=== PATIENT | male | born 1955 | race Caucasian/White ===

== ENCOUNTER → 2017-04-10 | Outpatient (CLI) | payer MEDICAID, OTHER ==
[~2017-04-10] MED LIST: AMIO200T PO; AMIO200T42 PO; AMLO2.5T PO; ATEN25TA PO; BACL-19 PO; BUDE10.2 INH; BUDE10.22 INH; CARV-39 PO; CARV12.52 PO; CEFD300C37 PO; CEFU500T50 PO; CLON-364 PO; DIPH25CA61 PO; DOXY100C2 PO; DOXY100T PO; ENOX80SY5 SQ; FAMO-79 PO; FOLI-17 PO; FURO-93 PO; FURO20TA3 PO; Folic Acid PO; GUAI200T3 PO; HYDR-3237 PO; HYDR-3241 PO; HYDR12.53 PO; HYDR25TA6 PO; IPRA3AMP NPPB; IRBE150T25 PO; IRBE300T16 PO; LEVO500T47 PO; LISI-170 PO; LORA-446 PO; LORA1TAB PO; MAGN400T26 PO; METR500T PO; NICO-485 TD; NICO-486 TD; OXYC5TAB3 PO; PRED-402 PO; PRED20TA PO; RIVA20TA PO; SILD50TA PO; SULF1TAB24 PO; THIA100T10 PO; THIA100T6 PO; TRAM-47 PO; WARF7.5T6 PO-COUM
== END | disposition home or self-care (01) ==
LOC: CFH 11:19
PROVIDERS: ATTEND Internal Medicine Cardiovascular Disease
DX: I48.0 Paroxysmal atrial fibrillation (principal); Z95.0 Presence of cardiac pacemaker
CPT/HCPCS: 71046

== ENCOUNTER → 2018-04-14 | Outpatient (CLI) | payer OTHER ==
[~2018-04-14] MED LIST changes: +ALBU18HF INH; -AMLO2.5T PO; +AMLO2.5T5 PO; +CARV12.543 PO; -CLON-364 PO; +CLON0.5T11 PO; +HYDR12.517 PO; -HYDR12.53 PO; -IPRA3AMP NPPB; +IPRA3AMP30 NPPB; +IRBE150T49 PO; +OMNIPAQUE 350 MG/ML, 150 ML BOTTLE ONE; +OXYB5TAB7 PO; +TAMS0.4C2 PO; -THIA100T6 PO; +THIA100T67 PO; +WARF-36 PO; +WARF7.5T46 PO-COUM; -WARF7.5T6 PO-COUM; +ZOLP-413 PO
== END | disposition home or self-care (01) ==
LOC: CFH 10:40
PROVIDERS: ATTEND Physician Assistant
DX: N26.1 Atrophy of kidney (terminal) (principal); M51.37 Other intervertebral disc degeneration, lumbosacral region
CPT/HCPCS: 74178; Q9967

== ENCOUNTER → 2018-05-10 | Outpatient (CLI) | payer OTHER ==
[~2018-05-10] MED LIST changes: +ASCO100019 PO; +ATOR20TA37 PO; +CYAN1TAB29 PO; +OMEG1CAP23 PO; -OMNIPAQUE 350 MG/ML, 150 ML BOTTLE ONE; +VARE1TAB20 PO; +WARF10TA43 PO
[2018-05-10 11:57] LABS: BASOPHILS # (AUTO) 0.03 x10^3/uL (0-0.1); BASOPHILS % (AUTO) 0 % (0-1); EOSINOPHILS # (AUTO) 0.53 x10^3/uL (0-0.4); EOSINOPHILS % (AUTO) 6 % (1-7); LYMPHOCYTES # (AUTO) 1.99 x10^3/uL (1-3.4); LYMPHOCYTES % (AUTO) 21 % (22-44); MD NO; MEAN CORPUSCULAR HEMOGLOBIN 28.9 pg (27.5-34.5); MEAN CORPUSCULAR HGB CONC 33.8 g/dL (33.2-36.2); MEAN CORPUSCULAR VOLUME 85.6 fL (81-97); MEAN PLATELET VOLUME 8.3 fL (7.4-10.4); MONOCYTES # (AUTO) 0.65 x10^3/uL (0.2-0.8); MONOCYTES % (AUTO) 7 % (2-9); NEUTROPHILS # (AUTO) 6.25 x10^3/uL (1.8-6.8); NEUTROPHILS % (AUTO) 66 % (42-75); PLATELET COUNT 290 x10^3/uL (130-400); RED CELL DISTRIBUTION WIDTH 14.9 % (9.4-14.8)
[2018-05-10 11:57] LABS: MICROSCOPIC AUTO
[2018-05-10 12:08] LABS: ALBUMIN 3.5 g/dL (3.4-5.0); ANION GAP 8 mmol/L (5-15); CALCIUM 8.8 mg/dL (8.5-10.1); CHLORIDE 108 mmol/L (98-107)
[2018-05-10 12:11] LABS: ALANINE AMINOTRANSFERASE 27 U/L (12-78); ALKALINE PHOSPHATASE 102 U/L (45-117); BILIRUBIN,TOTAL 0.5 mg/dL (0.2-1.0); CREATININE 1.16 mg/dL (0.7-1.3); TOTAL PROTEIN 6.9 g/dL (6.4-8.2)
== END | disposition home or self-care (01) ==
LOC: STAR 10:37
PROVIDERS: ATTEND Urology
DX: Z01.818 Encounter for other preprocedural examination (principal); N32.9 Bladder disorder, unspecified
CPT/HCPCS: 36415; 80053; 81001; 85025; 87086; 87106; 93005

== ENCOUNTER 2018-05-17 11:38 | Day surgery (SDC) | payer OTHER ==
[~2018-05-17] VITALS: Ht 167.6 cm; Wt 101.4 kg
[~2018-05-17 11:38] MED LIST changes: +ALBUTEROL/IPRATROPIUM 2.5MG/0.5MG, 3 ML NPPB PRN; +DIPHENHYDRAMINE 50 MG/ML, 1ML IVPush PRN; +FENTANYL PF 100 MCG/2ML IV PRN; +HALOPERIDOL 5 MG/ML IV PRN; +HYDROmorphone 2 MG/ML, 1ML IVPush PRN; +LABETALOL 5MG/ML, 20ML IV PRN; +MEPERIDINE/PF 25MG/0.5ML IVPush PRN; +METOPROLOL 1 MG/ML, 5ML IV PRN; +OXYcodone 5 MG/5 ML ORAL.SOL UDC PO PRN; +PROCHLORPERAZINE 5 MG/ML, 2ML IV PRN; +PROMETHAZINE 25 MG/ML, 1ML IV PRN; +hydrALAzine 20 MG/ML, 1ML IV PRN
[2018-05-17 12:20] VITALS: BP 131/79
[2018-05-17] MEDS ORDERED: GABAPENTIN 300 MG CAPSULE PO ONE (12:30)
[2018-05-17] MEDS ORDERED: ACETAMINOPHEN 500 MG TABLET PO ONE (12:30)
[2018-05-17] MEDS ORDERED: LACTATED RINGERS 1,000 ML IV SCH (12:45)
[2018-05-17] MEDS ORDERED: FENTANYL PF 100 MCG/2ML ONE (13:11)
[2018-05-17] MEDS ORDERED: NEOSTIGMINE 1 MG/ML, 10ML ONE (16:21)
[2018-05-17] MEDS ORDERED: GLYCOPYRROLATE 0.2MG/1ML, 5ML ONE (16:21)
[2018-05-17] MEDS ORDERED: ALBUTEROL SULFATE 200 PUFFS/8.5 GR INH ONE (16:21)
[2018-05-17] MEDS ORDERED: CEFAZOLIN 1,000 MG ONE (16:21)
[2018-05-17] MEDS ORDERED: KETOROLAC 30 MG/1 ML ONE (16:21)
[2018-05-17] MEDS ORDERED: SUCCINYLCHOLINE 20 MG/ML, 10ML ONE (16:21)
[2018-05-17] MEDS ORDERED: ROCURONIUM 10MG/ML,5ML ONE (16:21)
[2018-05-17] MEDS ORDERED: DEXAMETHASONE 4 MG/ML, 1ML ONE (16:21)
[2018-05-17] MEDS ORDERED: PROPOFOL 10 MG/ML, 20ML ONE (16:21)
[2018-05-17] MEDS ORDERED: ONDANSETRON 2MG/ML, 2ML ONE (16:21)
== END 2018-05-17 17:45 | disposition home or self-care (01) ==
LOC: OUT 11:38
PROVIDERS: ATTEND Urology
DX: N30.21 Other chronic cystitis with hematuria (principal); I25.2 Old myocardial infarction; I48.91 Unspecified atrial fibrillation; J44.9 Chronic obstructive pulmonary disease, unspecified; I10 Essential (primary) hypertension; Z95.810 Presence of automatic (implantable) cardiac defibrillator; Z86.718 Personal history of other venous thrombosis and embolism
CPT/HCPCS: 52235; 74420; 88305; C1758; J0330; J0690; J1100; J1885; J2405; J2704; J2710; J3010; J3490; J7120

== ENCOUNTER 2019-01-19 21:06 | Inpatient (IN) | payer OTHER ==
[~2019-01-19] VITALS: Ht 167.6 cm; Wt 83.4 kg
[~2019-01-19 21:06] MED LIST changes: -ALBUTEROL/IPRATROPIUM 2.5MG/0.5MG, 3 ML NPPB PRN; -DIPHENHYDRAMINE 50 MG/ML, 1ML IVPush PRN; -FENTANYL PF 100 MCG/2ML IV PRN; -GUAI200T3 PO; +GUAI200T37 PO; -HALOPERIDOL 5 MG/ML IV PRN; -HYDROmorphone 2 MG/ML, 1ML IVPush PRN; -LABETALOL 5MG/ML, 20ML IV PRN; -MEPERIDINE/PF 25MG/0.5ML IVPush PRN; -METOPROLOL 1 MG/ML, 5ML IV PRN; +OXYB5TAB10 PO; -OXYB5TAB7 PO; -OXYcodone 5 MG/5 ML ORAL.SOL UDC PO PRN; -PROCHLORPERAZINE 5 MG/ML, 2ML IV PRN; -PROMETHAZINE 25 MG/ML, 1ML IV PRN; -hydrALAzine 20 MG/ML, 1ML IV PRN
[2019-01-19] MEDS ORDERED: MORPHINE SULFATE 4 MG/ML, 1ML IVPush PRN (21:30)
[2019-01-19] MEDS ORDERED: ALBUTEROL/IPRATROPIUM 2.5MG/0.5MG, 3 ML NPPB ONE (21:30)
[2019-01-19] MEDS ORDERED: methylPREDNISolone SOD SUCC 125 MG/2 ML IV ONE (21:30)
[2019-01-19] MEDS ORDERED: SODIUM CHLORIDE 0.9% 1,000ML IVBOLUS ONE (21:30)
[2019-01-19] MEDS ORDERED: SODIUM CHLORIDE FLUSH 10ML SYR IVF ONE (21:30)
[2019-01-19] MEDS ORDERED: DILTIAZEM 5 MG/ML, 5ML IV ONE (21:30)
[2019-01-19] MEDS ORDERED: DILTIAZEM 5 MG/ML, 5ML ONE (21:39)
--- NOTE | 2019-01-19 21:40 | NUR ---
RT PGD X4 WITH NO ANSWER. LEFT MESSAGE
--- NOTE | 2019-01-19 21:56 | NUR ---
CONTACTED RT. RT NOW AWARE
[2019-01-19 22:04] LABS: RAPID INFLUENZA A Negative (Negative); RAPID INFLUENZA B Negative (Negative)
--- NOTE | 2019-01-19 22:14 | NUR ---
rt at bedside
[2019-01-19 22:26] LABS: BASOPHILS # (AUTO) 0.01 x10^3/uL (0-0.1); BASOPHILS % (AUTO) 0 % (0-1); EOSINOPHILS # (AUTO) 0.02 x10^3/uL (0-0.4); EOSINOPHILS % (AUTO) 0 % (1-7); LYMPHOCYTES # (AUTO) 0.62 x10^3/uL (1-3.4); LYMPHOCYTES % (AUTO) 5 % (22-44); MD NO; MEAN CORPUSCULAR HEMOGLOBIN 29.2 pg (27.5-34.5); MEAN CORPUSCULAR HGB CONC 33.1 g/dL (33.2-36.2); MEAN CORPUSCULAR VOLUME 88.5 fL (81-97); MEAN PLATELET VOLUME 9.5 fL (7.4-10.4); MONOCYTES # (AUTO) 0.49 x10^3/uL (0.2-0.8); MONOCYTES % (AUTO) 4 % (2-9); NEUTROPHILS % (AUTO) 90 % (42-75); PLATELET COUNT 223 x10^3/uL (130-400); RED BLOOD COUNT 5.34 x10^6/uL (4.38-5.82); RED CELL DISTRIBUTION WIDTH 15.6 % (9.4-14.8)
[2019-01-19] MEDS ORDERED: CEFTRIAXONE PMX 1GM/50ML 50 ML ONE (22:37)
[2019-01-19] MEDS ORDERED: methylPREDNISolone SOD SUCC 125 MG/2 ML ONE (22:37)
[2019-01-19 22:39] LABS: ALANINE AMINOTRANSFERASE 32 U/L (12-78); ALBUMIN 3.5 g/dL (3.4-5.0); ANION GAP 6 mmol/L (5-15); CALCIUM 8.7 mg/dL (8.5-10.1); CHLORIDE 106 mmol/L (98-107)
[2019-01-19 22:40] LABS: INTERNATIONAL NORMALIZED RATIO 1.77 (0.93-1.1); PROTHROMBIN TIME 18.2 Seconds (9.6-11.5)
[2019-01-19 22:42] LABS: ALKALINE PHOSPHATASE 75 U/L (45-117); BILIRUBIN,TOTAL 0.8 mg/dL (0.2-1.0); CREATININE 1.29 mg/dL (0.7-1.3); TOTAL PROTEIN 7.2 g/dL (6.4-8.2); TROPONIN I < 0.015 ng/mL (0.000-0.045)
[2019-01-19] MEDS ORDERED: DILTIAZEM 125 MG in SODIUM CHLORIDE 0.9% 100 ML IV SCH (22:42)
--- NOTE | 2019-01-19 22:50 | NUR ---
PT WORK OF BREATHING IMPROVED. SPEAKING IN FULL SENTENCES. NO ACUTE DISTRESS. ATTACHED TO ALL MONITORS
--- NOTE | 2019-01-19 22:55 | NUR ---
pt ambulatory to the bathroom with a steady gait
[2019-01-19 22:58] LABS: T4 (THYROXINE) 9.8 mcg/dL (4.5-12.1)
[2019-01-19] MEDS ORDERED: AZITHROMYCIN 500 MG in SODIUM CHLORIDE 0.9% 250 ML IVPB ONE (23:00)
[2019-01-19] MEDS ORDERED: CEFTRIAXONE PMX 1GM/50ML 50 ML IVPB ONE (23:00)
[2019-01-19] MEDS ORDERED: SODIUM CHLORIDE 0.9% 1,000 ML IV SCH (23:15)
--- NOTE | 2019-01-19 23:22 | NUR ---
report to ena contreras
[2019-01-19] MEDS ORDERED: ONDANSETRON ODT 4 MG PO PRN (23:30)
[2019-01-19] MEDS ORDERED: FUROSEMIDE 40 MG/4 ML IV ONE (23:30)
[2019-01-19] MEDS ORDERED: BISACODYL 10 MG SUPP PR PRN (23:30)
[2019-01-19] MEDS ORDERED: ONDANSETRON 2MG/ML, 2ML IVPush PRN (23:30)
[2019-01-19] MEDS ORDERED: DILTIAZEM 125 MG in SODIUM CHLORIDE 0.9% 100 ML IV PRN (23:30)
[2019-01-19] MEDS ORDERED: hydrALAzine 20 MG/ML, 1ML IVPush PRN (23:30)
[2019-01-19] MEDS ORDERED: morphine SULFATE 10 MG/ML, 1ML IVPush PRN (23:30)
[2019-01-19] MEDS ORDERED: OXYcodone IR 5MG TABLET PO PRN (23:30)
[2019-01-19] MEDS ORDERED: methylPREDNISolone SOD SUCC 125 MG/2 ML IVPush SCH (23:30)
[2019-01-19] MEDS ORDERED: PROMETHAZINE 25 MG/ML, 1ML IM PRN (23:30)
[2019-01-19 23:38] LABS: MICROSCOPIC AUTO
[2019-01-19 23:44] LABS: CULTURE INDICATED? YES
[2019-01-20] MEDS ORDERED: MAGNESIUM SULFATE PMX 2GM/50ML 50 ML IV ONE
[2019-01-20 00:05] LABS: FREE T4 (FREE THYROXINE) 1.15 ng/dL (0.76-1.46)
[2019-01-20] MEDS: DILTIAZEM 125 MG in SODIUM CHLORIDE 0.9% 100 ML IV SCH ×2 (00:30→14:22)
[2019-01-20] MEDS ORDERED: ALBUTEROL/IPRATROPIUM 2.5MG/0.5MG, 3 ML NPPB PRN (00:30)
[2019-01-20 00:44] VITALS: BP 117/79
[2019-01-20] MEDS: NICOTINE 7 MG/24 HR PATCH.TD24 TD SCH ×2 (01:06→22:40)
[2019-01-20] MEDS: ATORVASTATIN 20 MG TABLET PO SCH ×2 (01:07→20:13)
[2019-01-20] MEDS: DOXYCYCLINE 100MG TABLET PO SCH ×3 (01:07→20:13)
[2019-01-20] MEDS: ACETAMINOPHEN 325 MG TABLET PO PRN ×2 (02:57→20:13)
[2019-01-20] MEDS: methylPREDNISolone SOD SUCC 125 MG/2 ML IVPush SCH ×4 (05:24→22:38)
[2019-01-20 06:18] LABS: INTERNATIONAL NORMALIZED RATIO 1.65 (0.93-1.1)
[2019-01-20 06:19] LABS: ALANINE AMINOTRANSFERASE 34 U/L (12-78); ALBUMIN 3.3 g/dL (3.4-5.0); ANION GAP 8 mmol/L (5-15); CHLORIDE 108 mmol/L (98-107); CREATININE 1.24 mg/dL (0.7-1.3)
[2019-01-20 06:25] LABS: ALKALINE PHOSPHATASE 70 U/L (45-117); BILIRUBIN,TOTAL 0.7 mg/dL (0.2-1.0); CALCIUM 8.3 mg/dL (8.5-10.1); CHOL/HDL RATIO 4.4; CHOLESTEROL, TOTAL 153 mg/dL (140-239); HDL CHOL % 23 % (26-37); HDL CHOLESTEROL (DIRECT) 35 mg/dL (40-60); LDL CHOLESTEROL,CALCULATED 104 mg/dL (54-169); TOTAL PROTEIN 6.9 g/dL (6.4-8.2); TRIGLYCERIDES 70 mg/dL (50-200); VLDL CHOLESTEROL 14 mg/dL (0-25)
[2019-01-20 06:36] LABS: BASOPHILS # (AUTO) 0.01 x10^3/uL (0-0.1); BASOPHILS % (AUTO) 0 % (0-1); EOSINOPHILS # (AUTO) 0.06 x10^3/uL (0-0.4); EOSINOPHILS % (AUTO) 1 % (1-7); LYMPHOCYTES # (AUTO) 0.54 x10^3/uL (1-3.4); LYMPHOCYTES % (AUTO) 7 % (22-44); MD NO; MEAN CORPUSCULAR HEMOGLOBIN 28.9 pg (27.5-34.5); MEAN CORPUSCULAR HGB CONC 32.1 g/dL (33.2-36.2); MEAN CORPUSCULAR VOLUME 90.2 fL (81-97); MEAN PLATELET VOLUME 9.5 fL (7.4-10.4); MONOCYTES % (AUTO) 1 % (2-9); NEUTROPHILS # (AUTO) 7.42 x10^3/uL (1.8-6.8); NEUTROPHILS % (AUTO) 91 % (42-75); PLATELET COUNT 200 x10^3/uL (130-400); RED BLOOD COUNT 5.09 x10^6/uL (4.38-5.82); RED CELL DISTRIBUTION WIDTH 15.6 % (9.4-14.8)
[2019-01-20 08:29] VITALS: BP 120/78
[2019-01-20] MEDS ORDERED: ALBUTEROL/IPRATROPIUM 2.5MG/0.5MG, 3 ML HHN SCH (09:00)
[2019-01-20] MEDS: CARVEDILOL 25 MG TABLET PO SCH ×2 (09:47→20:12)
[2019-01-20] MEDS: ASCORBIC ACID 500 MG TABLET PO SCH (09:50)
[2019-01-20] MEDS ORDERED: POTASSIUM CHLORIDE 20 MEQ TAB.ER.PRT PO SCH (10:30)
[2019-01-20] MEDS: GUAIFENESIN 200 MG TABLET PO SCH ×3 (11:38→20:12)
[2019-01-20] MEDS: ALBUTEROL/IPRATROPIUM 2.5MG/0.5MG, 3 ML HHN SCH ×3 (11:55→19:16)
[2019-01-20 12:25] VITALS: BP 114/71
[2019-01-20] MEDS ORDERED: WARFARIN 10 MG TABLET PO-COUM ONE (18:00)
[2019-01-20 19:22] VITALS: BP 139/81
[2019-01-20] MEDS: DOCUSATE 100 MG CAPSULE PO PRN (20:12)
[2019-01-20] MEDS: POLYETHYLENE GLYCOL 17 GM PACKET PO PRN (20:12)
[2019-01-20] MEDS: TRAZODONE 50MG TABLET PO PRN (22:38)
[2019-01-20] MEDS ORDERED: CEFTRIAXONE PMX 2GM/50ML 50 ML IV SCH (22:45)
[2019-01-21 01:42] VITALS: BP 131/71
[2019-01-21] MEDS: GUAIFENESIN 200 MG TABLET PO SCH ×4 (05:13→19:56)
[2019-01-21] MEDS: methylPREDNISolone SOD SUCC 125 MG/2 ML IVPush SCH ×2 (05:13→11:39)
[2019-01-21 05:37] LABS: INTERNATIONAL NORMALIZED RATIO 1.57 (0.93-1.1); PROTHROMBIN TIME 16.2 Seconds (9.6-11.5)
[2019-01-21 05:43] LABS: ALBUMIN 2.9 g/dL (3.4-5.0); CALCIUM 8.4 mg/dL (8.5-10.1); CHLORIDE 112 mmol/L (98-107)
[2019-01-21 05:48] LABS: ALANINE AMINOTRANSFERASE 34 U/L (12-78); ALKALINE PHOSPHATASE 61 U/L (45-117); ANION GAP 6 mmol/L (5-15); BILIRUBIN,TOTAL 0.2 mg/dL (0.2-1.0); CREATININE 1.03 mg/dL (0.7-1.3); TOTAL PROTEIN 6.3 g/dL (6.4-8.2)
[2019-01-21] MEDS: ALBUTEROL/IPRATROPIUM 2.5MG/0.5MG, 3 ML HHN SCH ×4 (06:00→21:20)
[2019-01-21 07:00] VITALS: BP 105/69
[2019-01-21] MEDS: CARVEDILOL 25 MG TABLET PO SCH ×2 (09:12→19:55)
[2019-01-21] MEDS: DILTIAZEM 60 MG TABLET PO SCH ×2 (09:12→19:56)
[2019-01-21] MEDS: CEFDINIR 300 MG CAPSULE PO SCH ×2 (09:13→19:56)
[2019-01-21] MEDS: DOXYCYCLINE 100MG TABLET PO SCH ×2 (09:13→19:55)
[2019-01-21] MEDS: ASCORBIC ACID 500 MG TABLET PO SCH (09:13)
[2019-01-21] MEDS ORDERED: OMNIPAQUE 350 MG/ML, 100ML BOTTLE ONE (12:54)
[2019-01-21 13:46] VITALS: BP 114/77
[2019-01-21] MEDS ORDERED: WARFARIN 3 MG TABLET PO-COUM ONE (18:00)
[2019-01-21 19:53] VITALS: BP 132/86
[2019-01-21] MEDS: ATORVASTATIN 20 MG TABLET PO SCH (19:56)
[2019-01-21] MEDS: POLYETHYLENE GLYCOL 17 GM PACKET PO PRN (20:08)
[2019-01-21] MEDS: ACETAMINOPHEN 325 MG TABLET PO PRN (20:08)
[2019-01-21] MEDS: DOCUSATE 100 MG CAPSULE PO PRN (20:08)
[2019-01-21] MEDS: TRAZODONE 50MG TABLET PO PRN (22:08)
[2019-01-21] MEDS: NICOTINE 7 MG/24 HR PATCH.TD24 TD SCH (22:08)
[2019-01-22 00:02] VITALS: BP 118/74
[2019-01-22 05:35] LABS: INTERNATIONAL NORMALIZED RATIO 2.05 (0.93-1.1); PROTHROMBIN TIME 20.9 Seconds (9.6-11.5)
[2019-01-22 05:39] LABS: ANION GAP 4 mmol/L (5-15); CALCIUM 8.5 mg/dL (8.5-10.1); CHLORIDE 110 mmol/L (98-107)
[2019-01-22 05:41] LABS: MEAN CORPUSCULAR HEMOGLOBIN 29.1 pg (27.5-34.5); MEAN CORPUSCULAR HGB CONC 31.9 g/dL (33.2-36.2); MEAN CORPUSCULAR VOLUME 91.1 fL (81-97); MEAN PLATELET VOLUME 9.2 fL (7.4-10.4); PLATELET COUNT 201 x10^3/uL (130-400); RED BLOOD COUNT 5.21 x10^6/uL (4.38-5.82); RED CELL DISTRIBUTION WIDTH 16.5 % (9.4-14.8)
[2019-01-22 05:43] LABS: ALANINE AMINOTRANSFERASE 35 U/L (12-78); ALBUMIN 2.8 g/dL (3.4-5.0); ALKALINE PHOSPHATASE 54 U/L (45-117); BILIRUBIN,TOTAL 0.6 mg/dL (0.2-1.0); CREATININE 0.99 mg/dL (0.7-1.3); TOTAL PROTEIN 6.1 g/dL (6.4-8.2)
[2019-01-22] MEDS: GUAIFENESIN 200 MG TABLET PO SCH ×4 (06:00→20:22)
[2019-01-22] MEDS: ALBUTEROL/IPRATROPIUM 2.5MG/0.5MG, 3 ML HHN SCH ×4 (06:00→20:07)
[2019-01-22 06:18] LABS: MD YES
[2019-01-22 06:20] LABS: <PLATELET ESTIMATE> ADEQUATE; <PLT MORPHOLOGY> NORMAL PLT MORPH; BAND#(MANUAL) 1.76 x10^3/uL; BANDS%(MANUAL) 10 % (0-7); LYMPHS% (MANUAL) 4 % (22-44); MONOS#(MANUAL) 0.53 x10^3/uL (0.3-2.7); MONOS% (MANUAL) 3 % (2-9); SEG#(MANUAL) 14.61 x10^3/uL (1.8-6.8); SEGS% (MANUAL) 83 % (42-75)
[2019-01-22 06:21] LABS: <RBC MORPHOLOGY> NORMAL; PMNS WITH VACUOLES 1+; TOXIC GRAN 1+
[2019-01-22 07:51] VITALS: BP 128/70
[2019-01-22] MEDS: CEFDINIR 300 MG CAPSULE PO SCH ×2 (09:02→20:21)
[2019-01-22] MEDS: ASCORBIC ACID 500 MG TABLET PO SCH (09:03)
[2019-01-22] MEDS: DOXYCYCLINE 100MG TABLET PO SCH ×2 (09:04→20:21)
[2019-01-22] MEDS: DILTIAZEM 60 MG TABLET PO SCH ×2 (09:04→20:21)
[2019-01-22] MEDS: CARVEDILOL 25 MG TABLET PO SCH ×2 (09:05→20:22)
[2019-01-22 14:00] VITALS: BP 103/84
[2019-01-22] MEDS ORDERED: WARFARIN 10 MG TABLET PO-COUM ONE (18:00)
[2019-01-22] MEDS: ATORVASTATIN 20 MG TABLET PO SCH (20:21)
[2019-01-22] MEDS: ACETAMINOPHEN 325 MG TABLET PO PRN (20:22)
[2019-01-22] MEDS: NICOTINE 7 MG/24 HR PATCH.TD24 TD SCH (20:22)
[2019-01-22 20:24] VITALS: BP 136/96
[2019-01-22] MEDS: TRAZODONE 50MG TABLET PO PRN (20:36)
[2019-01-23 02:41] VITALS: BP 113/78
[2019-01-23 05:47] LABS: BASOPHILS # (AUTO) 0.01 x10^3/uL (0-0.1); BASOPHILS % (AUTO) 0 % (0-1); EOSINOPHILS # (AUTO) 0.01 x10^3/uL (0-0.4); EOSINOPHILS % (AUTO) 0 % (1-7); LYMPHOCYTES # (AUTO) 1.67 x10^3/uL (1-3.4); LYMPHOCYTES % (AUTO) 14 % (22-44); MD NO; MEAN CORPUSCULAR HEMOGLOBIN 29.4 pg (27.5-34.5); MEAN CORPUSCULAR HGB CONC 32.3 g/dL (33.2-36.2); MEAN CORPUSCULAR VOLUME 91.1 fL (81-97); MEAN PLATELET VOLUME 9.1 fL (7.4-10.4); MONOCYTES # (AUTO) 0.76 x10^3/uL (0.2-0.8); MONOCYTES % (AUTO) 6 % (2-9); NEUTROPHILS # (AUTO) 9.67 x10^3/uL (1.8-6.8); NEUTROPHILS % (AUTO) 80 % (42-75); PLATELET COUNT 202 x10^3/uL (130-400); RED BLOOD COUNT 5.34 x10^6/uL (4.38-5.82); RED CELL DISTRIBUTION WIDTH 15.7 % (9.4-14.8)
[2019-01-23 05:54] LABS: INTERNATIONAL NORMALIZED RATIO 2.73 (0.93-1.1); PROTHROMBIN TIME 27.6 Seconds (9.6-11.5)
[2019-01-23 05:57] LABS: ANION GAP 7 mmol/L (5-15); CALCIUM 8.3 mg/dL (8.5-10.1); CHLORIDE 107 mmol/L (98-107); CREATININE 0.95 mg/dL (0.7-1.3)
[2019-01-23] MEDS: ALBUTEROL/IPRATROPIUM 2.5MG/0.5MG, 3 ML HHN SCH ×2 (06:00→10:27)
[2019-01-23] MEDS: GUAIFENESIN 200 MG TABLET PO SCH (06:35)
[2019-01-23 07:28] VITALS: BP 125/85
[2019-01-23] MEDS ORDERED: BENZ100C PO (09:31)
[2019-01-23] MEDS ORDERED: CEFD300C37 PO (09:31)
[2019-01-23] MEDS ORDERED: DIGO125T PO (09:31)
[2019-01-23] MEDS ORDERED: DOXY100T PO (09:31)
[2019-01-23] MEDS: ASCORBIC ACID 500 MG TABLET PO SCH (10:34)
[2019-01-23] MEDS: DILTIAZEM 60 MG TABLET PO SCH (10:34)
[2019-01-23] MEDS: CEFDINIR 300 MG CAPSULE PO SCH (10:34)
[2019-01-23] MEDS: CARVEDILOL 25 MG TABLET PO SCH (10:35)
[2019-01-23] MEDS: DOXYCYCLINE 100MG TABLET PO SCH (10:35)
[2019-01-23] MEDS ORDERED: WARFARIN 7.5 MG TABLET PO-COUM ONE (18:00)
== END 2019-01-23 12:09 | disposition home or self-care (01) | DRG 189 ==
LOC: ED 22:55 → EDIP 23:17 → 5SO 23:48
PROVIDERS: ADMIT Internal Medicine; ATTEND Family Medicine
DX: J96.01 Acute respiratory failure with hypoxia (principal); I50.43 Acute on chronic combined systolic (congestive) and diastolic (congestive) heart failure; D68.69 Other thrombophilia; J44.1 Chronic obstructive pulmonary disease with (acute) exacerbation; N39.0 Urinary tract infection, site not specified; I48.0 Paroxysmal atrial fibrillation; I11.0 Hypertensive heart disease with heart failure; E78.5 Hyperlipidemia, unspecified; E83.42 Hypomagnesemia; E87.6 Hypokalemia; F10.10 Alcohol abuse, uncomplicated; F17.210 Nicotine dependence, cigarettes, uncomplicated; I25.10 Atherosclerotic heart disease of native coronary artery without angina pectoris; I25.2 Old myocardial infarction; N40.0 Benign prostatic hyperplasia without lower urinary tract symptoms; Z86.718 Personal history of other venous thrombosis and embolism; Z86.74 Personal history of sudden cardiac arrest; Z95.810 Presence of automatic (implantable) cardiac defibrillator; Z99.81 Dependence on supplemental oxygen
CPT/HCPCS: 36415; 36600; 84145; 87400; J7620; 71045; 71275; 80048; 80053; 80061; 80162; 81001; 82803; 83036; 83605; 83735; 83880; 84436; 84439; 84443; 84484; 85025; 85610; 85730; 87040; 87070; 87086; 87205; 93005; 93306; 94640; 99291; G0378; J0696; J1940; Q9967; J2930; J3475; J7030; J7512

== ENCOUNTER 2019-12-14 14:15 | Emergency (ER) | payer MEDICARE ==
[~2019-12-14] VITALS: Ht 167.6 cm; Wt 93.3 kg
[~2019-12-14 14:15] MED LIST changes: +BENZ100C PO; +CLON-364 PO; -CLON0.5T11 PO; +DIGO125T85 PO; -IRBE150T25 PO; +IRBE150T9 PO; -IRBE300T16 PO; +IRBE300T8 PO; +METO-93 PO; +WARF7.5T46 PO
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
[2019-12-14 16:08] VITALS: BP 132/80
--- NOTE | 2019-12-14 16:09 | NUR ---
PT GIVEN MEAL TRAY. UPDATED ON POC. VSS, NO OTHER NEEDS AT THIS TIME
[2019-12-14] MEDS ORDERED: METOPROLOL SUCCINATE 25 MG TAB.ER.24H PO ONE (16:30)
== END 2019-12-14 17:32 | disposition home or self-care (01) ==
LOC: ED 15:48
DX: I48.0 Paroxysmal atrial fibrillation (principal); F17.210 Nicotine dependence, cigarettes, uncomplicated; E78.5 Hyperlipidemia, unspecified; I11.0 Hypertensive heart disease with heart failure; I50.9 Heart failure, unspecified; J44.9 Chronic obstructive pulmonary disease, unspecified; I25.2 Old myocardial infarction; Z86.718 Personal history of other venous thrombosis and embolism; Z95.0 Presence of cardiac pacemaker
CPT/HCPCS: 93005; 99283

== ENCOUNTER → 2020-04-20 | Outpatient (CLI) | payer MEDICARE ==
[~2020-04-20] MED LIST changes: -FOLI-17 PO; +FOLI1TAB32 PO; -OXYC5TAB3 PO; +OXYC5TAB98 PO
[2020-04-20 14:37] LABS: CHLORIDE 105 mmol/L (98-107)
[2020-04-20 14:58] LABS: BASOPHILS % (AUTO) 1 % (0-1); EOSINOPHILS % (AUTO) 4 % (1-7); LYMPHOCYTES % (AUTO) 26 % (22-44); MEAN CORPUSCULAR HEMOGLOBIN 32.2 pg (27.5-34.5); MEAN CORPUSCULAR HGB CONC 34.2 g/dL (33.2-36.2); MEAN PLATELET VOLUME 8.8 fL (7.4-10.4); MONOCYTES % (AUTO) 10 % (2-9); NEUTROPHILS % (AUTO) 59 % (42-75); PLATELET COUNT 213 x10^3/uL (130-400); RED BLOOD COUNT 4.92 x10^6/uL (4.38-5.82); RED CELL DISTRIBUTION WIDTH 16.1 % (9.4-14.8)
[2020-04-20 15:05] LABS: MD NO
[2020-04-20 15:12] LABS: ANION GAP 7 mmol/L (5-15); CALCIUM 9.3 mg/dL (8.5-10.1)
[2020-04-20 15:16] LABS: ALANINE AMINOTRANSFERASE 29 U/L (12-78); ALKALINE PHOSPHATASE 80 U/L (45-117); BILIRUBIN,TOTAL 0.7 mg/dL (0.2-1.0); CHOL/HDL RATIO 3.2; CHOLESTEROL, TOTAL 230 mg/dL (140-239); CREATININE 1.19 mg/dL (0.7-1.3); HDL CHOL % 31 % (26-37); HDL CHOLESTEROL (DIRECT) 71 mg/dL (40-60); LDL CHOLESTEROL,CALCULATED 133 mg/dL (54-169); LDL/HDL RATIO 1.9 (0.5-3.0); TOTAL PROTEIN 7.3 g/dL (6.4-8.2); TRIGLYCERIDES 129 mg/dL (50-200); VLDL CHOLESTEROL 26 mg/dL (0-25)
== END | disposition home or self-care (01) ==
LOC: LAB 14:20
PROVIDERS: ATTEND Internal Medicine Cardiovascular Disease
DX: I11.0 Hypertensive heart disease with heart failure (principal); I50.33 Acute on chronic diastolic (congestive) heart failure; I48.0 Paroxysmal atrial fibrillation; I27.20 Pulmonary hypertension, unspecified
CPT/HCPCS: 36415; 80053; 80061; 85025

== ENCOUNTER 2020-04-26 14:05 | Outpatient (CLI) | payer MEDICARE ==
[2020-04-26] MEDS ORDERED: OMNIPAQUE 350 MG/ML, 150 ML BOTTLE ONE (14:45)
== END 2020-04-26 23:59 | disposition home or self-care (01) ==
LOC: CFH 14:05 → RAD 23:59
PROVIDERS: ATTEND Nurse Practitioner Family
DX: Z13.6 Encounter for screening for cardiovascular disorders (principal); I48.0 Paroxysmal atrial fibrillation
CPT/HCPCS: 71046; 75572; Q9967

== ENCOUNTER → 2020-05-15 | Outpatient (CLI) | payer MEDICARE ==
[~2020-05-15] MED LIST changes: +REGADENOSON 0.4 MG/5 ML SYRINGE ONE
== END | disposition home or self-care (01) ==
LOC: CFH 12:10
PROVIDERS: ATTEND Physician Assistant Medical
DX: I48.0 Paroxysmal atrial fibrillation (principal); I42.6 Alcoholic cardiomyopathy
CPT/HCPCS: 78452; 93017; A9502; J2785

== ENCOUNTER 2020-08-03 06:15 | Day surgery (SDC) | payer MEDICARE ==
[~2020-08-03] VITALS: Ht 175.3 cm; Wt 90.9 kg
[~2020-08-03 06:15] MED LIST changes: +ASPI81TA45 PO; +FURO-92 PO; +IPRA3AMP30 NEB; +MAGN400T36 PO; +METO-95 PO; -REGADENOSON 0.4 MG/5 ML SYRINGE ONE; +RIVA10TA2 PO; +SULF-23 PO; -SULF1TAB24 PO; +Vitamin B12 PO; +Vitamin D PO; +Vitamin E PO
[2020-08-03] MEDS ORDERED: RIVA20TA PO (06:39)
[2020-08-03 07:00] VITALS: BP 134/85
[2020-08-03] MEDS ORDERED: PROPOFOL 10 MG/ML, 20ML ONE (07:18)
== END 2020-08-03 08:45 | disposition home or self-care (01) ==
LOC: CACL 06:15
PROVIDERS: ATTEND Internal Medicine Cardiovascular Disease
DX: I48.0 Paroxysmal atrial fibrillation (principal); I34.0 Nonrheumatic mitral (valve) insufficiency; I11.0 Hypertensive heart disease with heart failure; I50.9 Heart failure, unspecified; I42.6 Alcoholic cardiomyopathy; E78.5 Hyperlipidemia, unspecified; J44.9 Chronic obstructive pulmonary disease, unspecified; I25.10 Atherosclerotic heart disease of native coronary artery without angina pectoris; E03.9 Hypothyroidism, unspecified; F12.90 Cannabis use, unspecified, uncomplicated; F17.210 Nicotine dependence, cigarettes, uncomplicated; Z88.8 Allergy status to other drugs, medicaments and biological substances; Z72.89 Other problems related to lifestyle; Z79.01 Long term (current) use of anticoagulants; Z79.82 Long term (current) use of aspirin; Z79.899 Other long term (current) drug therapy; Z98.890 Other specified postprocedural states; Z91.041 Radiographic dye allergy status; Z20.822 Contact with and (suspected) exposure to COVID-19
CPT/HCPCS: 87635; 93312; 93325; J2704